=== PATIENT | female | born 1980 | race Caucasian/White ===

== ENCOUNTER 2022-06-05 13:18 | Emergency (ER) | payer BC, SELFPAY ==
--- NOTE | 2022-06-05 14:54 | ED_ITS ---
HPI - General Adult General Chief complaint: Upper Respiratory Symptoms Stated complaint: sinus infection? Time Seen by Provider: 06/05/22 14:54 Source: patient Mode of arrival: ambulatory Limitations: no limitations History of Present Illness HPI narrative: 42 y/o female presenting to the ER for antibiotics for a sinus infection. She states for the last 3 days she has had left sided ear pain, left sided sinus pr essure and sore throat. She has been using ofloxacin ear drops with no improvement. She reports low grade fevers at home and decreased PO intake. She has history of sinus infections in the past and her symptoms feel similar. She has sinus pressure on the left. MD complaint: ear pain, sinus pressure Onset (ago): day(s) (3) Location: head, face and mouth Radiation: non-radiation Severity: moderate Quality: aching Pain Consistency: constant Relieving factors: none Exacerbating factors: movement Associated symptoms: headaches, loss of appetite and malaise Treatments prior to arrival: none Related Data Previous Rx's Medication Instructions Recorded fluticasone propionate 50 1 spray intranasal BID #16 grams 06/05/22 mcg/actuation nasal spray,suspension (Flonase Allergy Relief) levofloxacin 500 mg tablet 500 mg PO DAILY #7 tabs 06/05/22 Allergies Allergy/AdvReac Type Severity Reaction Status Date / Time amoxicillin Allergy Rash Verified 06/05/22 14:56 Review of Systems Review of Systems: Constitutional: No Fever, + Chills ENT/Mouth: No sore throat, No Rhinorrhea, No Swallowing Difficulty, +Sinus pressure, +Otalgia Eyes: No Eye Pain, No Swelling, No Redness Cardiovascular: No Chest Pain, No SOB Respiratory: No Cough, No Sputum Gastrointestinal: No Nausea, No Vomiting, No Diarrhea, No abdominal Pain Musculoskeletal: No joint pain, No Myalgias Skin: No Skin Lesions, No rash Neuro: No Dizziness, + Headache Psych: + Anxiety/Panic, +Depression (recent in the family) Heme/Lymph: No Lymphadenopathy PMFSH Social History Social History Advance Directives: No Advance Directives Information Provided: No Physical Exam ED Vital Signs: Vital Signs - 24 hr 06/05/22 14:58 Temperature 99.6 F Pulse Rate 110 H Respiratory Rate 16 Blood Pressure 120/78 Pulse Oximetry 97 Oxygen Delivery Method Room Air BMI result Body Mass Index 21.4 Appearance: Alert. Oriented X3. No acute distress. HEENT: normal external inspection. left maxially sinus tenderness. nasal turbinates erythematous with purulent nasal discharge. left TM with erythema and bulging, loss of landmarks. throat with moist mucus membranes, no tonsillar swelling, mild generalized erythema. CVS: Normal heart rate and rhythm. Pulses normal. Respiratory: No respiratory distress. Lungs are clear throughout Skin: Skin warm and dry. Normal skin color. Normal skin turgor. No rashes. Extremities: normal inspection x4. normal YOSVANY Neuro: Oriented X 3. Nonfocal, steady gait. hyperverbal Course Course Course Narrative: 42 yo female presenting with sinus pressure and left ear pain x3 days. Exam and clinical presentation are consistent with acute otitis media. Will treat with levaquin given PCN allergy. COVID negative at home. VSS. Stable for d/c home. Encouraged to f/u with PCP. Discharge Plan Discharge Clinical Impression: Acute ear infection Patient Disposition: Home, Self-Care Instructions: Ear Infection (ED) Additional Instructions: Take the antibiotic as directed - complete the entire course Rest and stay hydrated Take over the counter Motrin or Tylenol as needed for fevers and pain. If you develop new or worsening symptoms call 911 or come back to the ER for further evaluation. Prescriptions: New levofloxacin 500 mg tablet 500 mg PO DAILY Qty: 7 0RF fluticasone propionate [Flonase Allergy Relief] 50 mcg/actuation spray,suspension 1 spray intranasal BID Qty: 16 0RF Rx Instructions: administer into each nostril
[2022-06-05 14:58] VITALS: BP 120/78; PULSE 110; RESP 16; TEMP 37.6; O2SAT 97; BMI 21.4
== END 2022-06-05 15:17 | disposition home or self-care (01) ==
PROVIDERS: Emergency Provider Emergency Medicine Emergency Medical Services
DX: H83.03 Labyrinthitis, bilateral (principal); R51.9 Headache, unspecified; Z79.899 Other long term (current) drug therapy
CPT/HCPCS: 99282; 99283